=== PATIENT | male | born 1955 | race Hispanic/Latino ===

== ENCOUNTER → 2017-11-25 | Outpatient (CLI) | payer SELFPAY | END | disposition home or self-care (01) | LOC: OIH 12:31 | PROVIDERS: ATTEND Internal Medicine Cardiovascular Disease | DX: Z13.6 Encounter for screening for cardiovascular disorders (principal) | CPT/HCPCS: 75571 ==

== ENCOUNTER → 2017-12-03 | Outpatient (CLI) | payer BC | END | disposition home or self-care (01) | LOC: SHCH 11:08 → EDUNIT# 11:30 | PROVIDERS: ATTEND Internal Medicine Cardiovascular Disease | DX: I10 Essential (primary) hypertension (principal); E11.9 Type 2 diabetes mellitus without complications | CPT/HCPCS: 93306 ==